=== PATIENT | male | born 1955 | race Native Hawaiian/Other Pacific Islander ===

== ENCOUNTER 2021-01-23 09:12 | Outpatient (CLI) | payer OTHER ==
[2021-01-23 10:31] LABS: PLATELET COUNT 201 K/uL (142-355)
[2021-01-23 10:42] LABS: POTASSIUM 4.3 mmol/L (3.6-5.2)
== END 2021-01-23 21:47 | disposition home or self-care (01) ==
LOC: LABW 09:12
PROVIDERS: ATTEND Internal Medicine
DX: N18.30 Chronic kidney disease, stage 3 unspecified (principal); E11.29 Type 2 diabetes mellitus with other diabetic kidney complication
CPT/HCPCS: 36415; 80069; 81000; 82570; 83883; 84155; 84550; 85027; 86038

== ENCOUNTER 2021-03-02 08:47 | Outpatient (CLI) | payer OTHER ==
[2021-03-02 09:20] LABS: POTASSIUM 4.8 mmol/L (3.6-5.2)
[2021-03-02 09:25] LABS: PLATELET COUNT 178 K/uL (142-355)
== END 2021-03-02 21:45 | disposition home or self-care (01) ==
LOC: LABW 08:47
PROVIDERS: ATTEND Internal Medicine
DX: N18.30 Chronic kidney disease, stage 3 unspecified (principal); N17.9 Acute kidney failure, unspecified
CPT/HCPCS: 36415; 80048; 82040; 84100; 84550; 85027

== ENCOUNTER 2021-06-08 09:25 | Outpatient (CLI) | payer OTHER ==
[2021-06-08 09:48] LABS: POTASSIUM 4.6 mmol/L (3.6-5.2)
[2021-06-08 10:44] LABS: PLATELET COUNT 177 K/uL (142-355)
== END 2021-06-08 22:15 | disposition home or self-care (01) ==
LOC: LABW 09:25
PROVIDERS: ATTEND Internal Medicine
DX: I12.9 Hypertensive chronic kidney disease with stage 1 through stage 4 chronic kidney disease, or unspecified chronic kidney disease (principal); N18.30 Chronic kidney disease, stage 3 unspecified; E11.29 Type 2 diabetes mellitus with other diabetic kidney complication
CPT/HCPCS: 36415; 80048; 82040; 84100; 84165; 84550; 85027

== ENCOUNTER 2021-08-31 09:03 | Outpatient (CLI) | payer OTHER ==
[2021-08-31 09:27] LABS: PLATELET COUNT 177 K/uL (142-355)
== END 2021-08-31 19:17 | disposition home or self-care (01) ==
LOC: LABW 09:03
PROVIDERS: ATTEND Internal Medicine
DX: I12.9 Hypertensive chronic kidney disease with stage 1 through stage 4 chronic kidney disease, or unspecified chronic kidney disease (principal); N18.30 Chronic kidney disease, stage 3 unspecified; E11.29 Type 2 diabetes mellitus with other diabetic kidney complication
CPT/HCPCS: 36415; 80048; 82040; 84100; 84550; 85027

== ENCOUNTER 2021-11-30 08:06 | Outpatient (CLI) | payer OTHER ==
[2021-11-30 08:21] LABS: PLATELET COUNT 164 K/uL (142-355)
[2021-11-30 08:29] LABS: POTASSIUM 4.3 mmol/L (3.6-5.2)
== END 2021-11-30 19:07 | disposition home or self-care (01) ==
LOC: LABW 08:06
PROVIDERS: ATTEND Internal Medicine
DX: I12.9 Hypertensive chronic kidney disease with stage 1 through stage 4 chronic kidney disease, or unspecified chronic kidney disease (principal); N18.30 Chronic kidney disease, stage 3 unspecified; E11.29 Type 2 diabetes mellitus with other diabetic kidney complication
CPT/HCPCS: 36415; 80048; 80061; 82040; 84100; 84550; 85027

== ENCOUNTER 2022-03-01 08:10 | Outpatient (CLI) | payer OTHER ==
[2022-03-01 08:33] LABS: PLATELET COUNT 167 K/uL (142-355)
[2022-03-01 08:34] LABS: POTASSIUM 4.3 mmol/L (3.6-5.2)
== END 2022-03-01 18:58 | disposition home or self-care (01) ==
LOC: LABW 08:10
PROVIDERS: ATTEND Internal Medicine
DX: I12.9 Hypertensive chronic kidney disease with stage 1 through stage 4 chronic kidney disease, or unspecified chronic kidney disease (principal); N18.30 Chronic kidney disease, stage 3 unspecified; E11.29 Type 2 diabetes mellitus with other diabetic kidney complication
CPT/HCPCS: 36415; 80048; 80061; 82040; 83036; 84100; 84550; 85027

== ENCOUNTER 2022-06-28 07:58 | Outpatient (CLI) | payer OTHER ==
[2022-06-28 08:19] LABS: PLATELET COUNT 181 K/uL (142-355)
[2022-06-28 08:23] LABS: POTASSIUM 3.9 mmol/L (3.6-5.2)
== END 2022-06-28 20:37 | disposition home or self-care (01) ==
LOC: LABW 07:58
PROVIDERS: ATTEND Internal Medicine
DX: N18.32 Chronic kidney disease, stage 3b (principal); I10 Essential (primary) hypertension; E11.29 Type 2 diabetes mellitus with other diabetic kidney complication
CPT/HCPCS: 36415; 80048; 82465; 83036; 85027

== ENCOUNTER 2022-10-04 08:03 | Outpatient (CLI) | payer OTHER ==
[2022-10-04 08:20] LABS: PLATELET COUNT 193 K/uL (142-355)
[2022-10-04 09:19] LABS: POTASSIUM 4.8 mmol/L (3.6-5.2)
== END 2022-10-04 21:35 | disposition home or self-care (01) ==
LOC: LABW 08:03
PROVIDERS: ATTEND Internal Medicine
DX: I12.9 Hypertensive chronic kidney disease with stage 1 through stage 4 chronic kidney disease, or unspecified chronic kidney disease (principal); N18.32 Chronic kidney disease, stage 3b; E11.29 Type 2 diabetes mellitus with other diabetic kidney complication
CPT/HCPCS: 36415; 80048; 80061; 82040; 83036; 84100; 84550; 85027